=== PATIENT | female | born 1950 | race Caucasian/White ===

== ENCOUNTER 2021-03-20 12:40 | Outpatient (CLI) | payer MEDICARE, BC | END 2021-03-20 12:41 | disposition home or self-care (01) | LOC: CT 12:40 | PROVIDERS: ATTEND Neurological Surgery | DX: S32.039A Unspecified fracture of third lumbar vertebra, initial encounter for closed fracture (principal); S22.081A Stable burst fracture of T11-T12 vertebra, initial encounter for closed fracture; N20.0 Calculus of kidney | CPT/HCPCS: 72131 ==

== ENCOUNTER 2021-06-20 07:26 | Day surgery (SDC) | payer MEDICARE, BC ==
[2021-06-19 12:13] VITALS: BMI 21.9
[2021-06-20 08:15] VITALS: TEMP 97.5
[2021-06-20 09:32] VITALS: BP 153/90
== END 2021-06-20 09:23 | disposition home or self-care (01) ==
LOC: RAD 07:26
PROVIDERS: ATTEND Neurological Surgery
DX: G91.9 Hydrocephalus, unspecified (principal); G93.89 Other specified disorders of brain; Z53.9 Procedure and treatment not carried out, unspecified reason; Z79.899 Other long term (current) drug therapy

== ENCOUNTER 2023-06-02 13:54 | Outpatient (CLI) | payer MEDICARE, BC | END 2023-06-02 13:55 | disposition home or self-care (01) | LOC: BICMAMMO 13:54 | PROVIDERS: ATTEND Internal Medicine | DX: Z13.820 Encounter for screening for osteoporosis (principal); M81.0 Age-related osteoporosis without current pathological fracture | CPT/HCPCS: 77080 ==

== ENCOUNTER 2025-09-06 11:39 | Outpatient (CLI) | payer MEDICARE | END 2025-09-06 11:40 | disposition home or self-care (01) | LOC: SCSBT 11:39 | PROVIDERS: ATTEND Physician Assistant | DX: M81.0 Age-related osteoporosis without current pathological fracture (principal) | CPT/HCPCS: 77080 ==